=== PATIENT | male | born 1975 | race African-American/Black ===

== ENCOUNTER 2019-03-02 08:52 | Inpatient (IN) ==
[2019-03-02 12:09] LABS: Basophils % 0.7 % (0.0-0.8); Eosinophils # 0.1 10*3/uL (0.0-0.87); Eosinophils % 0.9 % (0.00-10.9); Hematocrit 42.9 VOL% (42.0-52.0); Hemoglobin 13.9 GM/DL (14.0-18.0); Immature Granulocytes % 0.2 %; Immature Granulocytes Absolute 0.01 #; Lymphocytes # 2.1 10*3/uL (1.4-4.0); Lymphocytes % 36.7 % (21.2-54.2); Mean Corpuscular HGB Conc 32.4 GM/DL (32-36); Mean Corpuscular Volume 92.3 FL (87-102); Mean Platelet Volume 10.2 FL (9.6-12.0); Monocytes % 7.6 % (1.7-12.7); NRBC # 0.02 10*3/uL; Neutrophils % 53.9 % (38.7-73.9); Platelet Count 267 T/CUMM (130-400); Red Blood Count 4.65 MC/CUMM (3.8-5.5); Red Cell Distribution Width 14.2 % (9.3-17.3); White Blood Count 5.8 T/CUMM (4-12)
[2019-03-02 12:19] LABS: Apearance,Urine CLEAR (Clear); Bacteria,Urine Occasional /HPF (Few); Bilirubin,Urine Negative (Negative); Blood, Urine Negative (Negative); Glucose,Urine (UA) Negative (Negative); Ketones,Urine Negative (Negative); Mucus,Urine Moderate /LPF (Occasional); Nitrite,Urine Negative (Negative); Protein,Urine 100 MG/DL; RBC,Urine 3 /HPF (0-4); Squamous Epithelial Cell,Urine Occasional /HPF (0-10); Urine Specific Gravity 1.017 (1.001-1.035); WBC,Urine <1 /HPF (0-6)
[2019-03-02 12:20] LABS: Urine Color Yellow (Yellow)
[2019-03-02 12:38] LABS: Bilirubin,Total 1.4 MG/DL (0.2-1.0); Calcium 9.2 MG/DL (8.5-10.1); Osmolality,Calculated 278.3 MOS/KG (273-304)
[2019-03-02 12:43] LABS: Barbiturates Screen,Urine Negative (Negative); Benzodiazepines Screen,Urine Negative (Negative); Cannabinoid Screen,Urine Negative (Negative); Opiate Screen,Urine Negative (Negative); Phencyclidine Screen,Urine Negative (Negative)
[2019-03-02 12:50] LABS: Troponin I 0.049 NG/ML (0.00-0.045)
[2019-03-02] MEDS ORDERED: FUROSEMIDE 100 MG/10 ML VIAL IV STA (13:58)
[2019-03-02] MEDS ORDERED: ENOXAPARIN 60 MG/0.6 ML SYRINGE SUBCUT STA (14:00)
[2019-03-02] MEDS ORDERED: FUROSEMIDE 40 MG/4 ML VIAL IV STA (14:03)
[2019-03-02] MEDS ORDERED: ASPIRIN CHEW 81 MG TABLET PO STA (14:04)
[2019-03-02] MEDS ORDERED: ACETAMINOPHEN 325 MG TABLET PO PRN (14:12)
[2019-03-02] MEDS ORDERED: ONDANSETRON 4 MG/2 ML VIAL IV PRN (14:12)
[2019-03-02] MEDS ORDERED: CARVEDILOL 3.125 MG TABLET PO STA (14:19)
[2019-03-02] MEDS ORDERED: ALBUTEROL/IPRATROPIUM 3 ML NEB RESP TX PRN (14:21)
[2019-03-02] MEDS ORDERED: CARVEDILOL 12.5 MG TABLET ONE (14:47)
[2019-03-02] MEDS ORDERED: CARVEDILOL 3.125 MG TABLET ONE (14:50)
[2019-03-02] MEDS: ENOXAPARIN 80 MG/0.8 ML SYRINGE SUBCUT SCH (15:04)
[2019-03-02] MEDS ORDERED: PNEUMOCOCCAL VACCINE (23 VALENT) 0.5 ML VIAL IM ONE (16:24)
[2019-03-02] MEDS: NICOTINE 21 MG/24 HR PATCH TRANSDERM SCH (16:29)
[2019-03-02] MEDS: LOSARTAN 25 MG TABLET PO SCH (16:29)
[2019-03-02] MEDS ORDERED: ATORVASTATIN 20 MG TABLET PO SCH (21:00)
[2019-03-02] MEDS: CARVEDILOL 6.25 MG TABLET PO SCH (21:13)
[2019-03-03 00:54] LABS: Basophils # 0.1 10*3/uL (0.0-0.2); Basophils % 0.8 % (0.0-0.8); Eosinophils # 0.2 10*3/uL (0.0-0.87); Hemoglobin 13.2 GM/DL (14.0-18.0); Immature Granulocytes % 0.1 %; Immature Granulocytes Absolute 0.01 #; Lymphocytes # 2.9 10*3/uL (1.4-4.0); Lymphocytes % 38.8 % (21.2-54.2); Mean Corpuscular HGB Conc 32.2 GM/DL (32-36); Mean Corpuscular Volume 92.1 FL (87-102); Mean Platelet Volume 9.9 FL (9.6-12.0); Monocytes % 7.7 % (1.7-12.7); NRBC # 0.02 10*3/uL; Neutrophils % 50.6 % (38.7-73.9); Platelet Count 263 T/CUMM (130-400); Red Blood Count 4.45 MC/CUMM (3.8-5.5); White Blood Count 7.6 T/CUMM (4-12)
[2019-03-03 01:29] LABS: Calcium 9.3 MG/DL (8.5-10.1); Osmolality,Calculated 277.7 MOS/KG (273-304); Risk Ratio 5.62; Thyroid Stimulating Hormone 2.77 uIU/ml (0.358-3.74)
[2019-03-03] MEDS ORDERED: FUROSEMIDE 40 MG/4 ML VIAL IV SCH (03:00)
[2019-03-03] MEDS: ENOXAPARIN 80 MG/0.8 ML SYRINGE SUBCUT SCH ×2 (03:33→17:09)
[2019-03-03] MEDS ORDERED: LOSARTAN 25 MG TABLET PO SCH (09:00)
[2019-03-03] MEDS ORDERED: MAGNESIUM SULF RIDER 2 GM in PREMIX 1 EACH IV PRN (09:43)
[2019-03-03] MEDS ORDERED: POTASSIUM CHLORIDE RIDER 10 MEQ in PREMIX 1 EACH IV PRN (09:43)
[2019-03-03] MEDS ORDERED: diphenhydrAMINE CAP 25 MG CAPSULE PO ONE (09:43)
[2019-03-03] MEDS ORDERED: DIAZEPAM 5 MG TABLET PO ONE (09:43)
[2019-03-03] MEDS: LOSARTAN 25 MG TABLET PO SCH ×2 (09:51→21:51)
[2019-03-03] MEDS: NICOTINE 21 MG/24 HR PATCH TRANSDERM SCH (09:52)
[2019-03-03] MEDS: ASPIRIN CHEW 81 MG TABLET PO SCH (09:52)
[2019-03-03] MEDS: PANTOPRAZOLE 40 MG TABLET PO SCH (09:52)
[2019-03-03] MEDS: ROSUVASTATIN 20 MG TABLET PO SCH (09:52)
[2019-03-03] MEDS: CARVEDILOL 6.25 MG TABLET PO SCH ×2 (09:52→21:50)
[2019-03-03] MEDS: SODIUM CHLORIDE 0.9% 1,000 ML IV SCH ×2 (11:14→21:46)
[2019-03-03] MEDS ORDERED: VERAPAMIL 5 MG/2 ML VIAL ONE (11:38)
[2019-03-03] MEDS ORDERED: MIDAZOLAM 2 MG/2 ML VIAL ONE (11:38)
[2019-03-03] MEDS ORDERED: LIDOCAINE 1% 20 ML VIAL ONE (11:38)
[2019-03-03] MEDS ORDERED: NITROGLYCERIN DRIP 50 MG/250 ML BOTTLE IV ONE (11:38)
[2019-03-03] MEDS ORDERED: HYDROmorphone 2 MG/1 ML VIAL ONE (11:38)
[2019-03-03] MEDS: FUROSEMIDE 40 MG TABLET PO SCH (17:08)
[2019-03-04] MEDS: SODIUM CHLORIDE 0.9% 1,000 ML IV SCH (02:58)
[2019-03-04] MEDS: ENOXAPARIN 80 MG/0.8 ML SYRINGE SUBCUT SCH (03:01)
[2019-03-04 04:54] LABS: Basophils # 0.1 10*3/uL (0.0-0.2); Basophils % 0.7 % (0.0-0.8); Eosinophils # 0.1 10*3/uL (0.0-0.87); Hematocrit 39.5 VOL% (42.0-52.0); Hemoglobin 12.8 GM/DL (14.0-18.0); Immature Granulocytes % 0.1 %; Immature Granulocytes Absolute 0.01 #; Lymphocytes # 2.9 10*3/uL (1.4-4.0); Lymphocytes % 41.8 % (21.2-54.2); Mean Corpuscular HGB Conc 32.4 GM/DL (32-36); Mean Corpuscular Volume 92.9 FL (87-102); Mean Platelet Volume 10.8 FL (9.6-12.0); Monocytes % 7.5 % (1.7-12.7); NRBC # 0.02 10*3/uL; Neutrophils % 47.9 % (38.7-73.9); Platelet Count 262 T/CUMM (130-400); Red Blood Count 4.25 MC/CUMM (3.8-5.5); Red Cell Distribution Width 13.9 % (9.3-17.3); White Blood Count 6.9 T/CUMM (4-12)
[2019-03-04 05:16] LABS: Calcium 9.1 MG/DL (8.5-10.1); Osmolality,Calculated 282.3 MOS/KG (273-304)
[2019-03-04 08:18] VITALS: BP 106/77
[2019-03-04] MEDS ORDERED: MAGNESIUM SULF RIDER 2 GM in PREMIX 1 EACH IV PRN (08:24)
[2019-03-04] MEDS ORDERED: MAGNESIUM SULF RIDER 4 GM in PREMIX 1 EACH IV PRN (08:24)
[2019-03-04] MEDS: CARVEDILOL 6.25 MG TABLET PO SCH (09:21)
[2019-03-04] MEDS: NICOTINE 21 MG/24 HR PATCH TRANSDERM SCH (09:21)
[2019-03-04] MEDS: FUROSEMIDE 40 MG TABLET PO SCH (09:21)
[2019-03-04] MEDS: ROSUVASTATIN 20 MG TABLET PO SCH (09:21)
[2019-03-04] MEDS: ASPIRIN CHEW 81 MG TABLET PO SCH (09:21)
[2019-03-04] MEDS: LOSARTAN 25 MG TABLET PO SCH (09:21)
[2019-03-04] MEDS: PANTOPRAZOLE 40 MG TABLET PO SCH (09:23)
[2019-03-04] MEDS ORDERED: PNEUMOCOCCAL VACCINE (23 VALENT) 0.5 ML VIAL IM ONE (11:14)
== END 2019-03-04 11:50 | disposition home or self-care (01) | DRG 286 ==
LOC: N.ED 08:52 → SUATTDRO 14:12 → N.EDINP 14:12 → N.TELEN 16:19
PROVIDERS: ADMIT Emergency Medicine; ATTEND Internal Medicine